=== PATIENT | female | born 1955 | race Caucasian/White ===

== ENCOUNTER 2024-05-10 06:45 | Day surgery (SDC) | payer OTHER ==
[~2024-05-10] VITALS: Ht 157.5 cm; Wt 93.4 kg
[2024-05-10] MEDS ORDERED: ALBU2.5V5 (07:09)
[2024-05-10] MEDS ORDERED: ASPI81CH (07:09)
[2024-05-10] MEDS ORDERED: CLON.5 (07:10)
[2024-05-10] MEDS ORDERED: CETI5 (07:10)
[2024-05-10] MEDS ORDERED: Bentyl10 MG (07:10)
[2024-05-10] MEDS ORDERED: Cyclobenzaprine5 MG (07:10)
[2024-05-10] MEDS ORDERED: UBID10 (07:10)
[2024-05-10] MEDS ORDERED: LOSA25 (07:11)
[2024-05-10] MEDS ORDERED: HYDSUL200 (07:11)
[2024-05-10] MEDS ORDERED: HYDROCHLOROTHIA25 MG (07:11)
[2024-05-10] MEDS ORDERED: MIRALAX1714 (07:12)
[2024-05-10] MEDS ORDERED: OCUFLOX511 (07:12)
[2024-05-10] MEDS ORDERED: METO100ER (07:12)
[2024-05-10] MEDS ORDERED: MONT10T (07:12)
[2024-05-10] MEDS ORDERED: PROBIOTIC1 EA14 (07:13)
[2024-05-10] MEDS ORDERED: POTA10T (07:13)
[2024-05-10] MEDS ORDERED: OMEP20ER (07:13)
[2024-05-10] MEDS ORDERED: Simvastatin10 MG (07:13)
[2024-05-10] MEDS ORDERED: Vitamin C100 M1 (07:14)
[2024-05-10] MEDS ORDERED: Lactated Ringer's 1,000 ML IV ONE ×2 (07:27→07:52)
[2024-05-10] MEDS ORDERED: propofoL 50 ML IV ONE ×2 (08:02→08:23)
[2024-05-10 09:00] VITALS: BP 111/67
== END 2024-05-10 09:00 | disposition home or self-care (01) ==
LOC: ORSCSDS 06:45
PROVIDERS: Internal Medicine Gastroenterology
PROC: 0DJD8ZZ Inspection of Lower Intestinal Tract, Via Natural or Artificial Opening Endoscopic (ICD-10-PCS; principal; 2024-05-10 08:00)
DX: Z12.11 Encounter for screening for malignant neoplasm of colon (principal); K57.30 Diverticulosis of large intestine without perforation or abscess without bleeding; Z86.010 Personal history of colon polyps; G47.33 Obstructive sleep apnea (adult) (pediatric); I10 Essential (primary) hypertension; K21.9 Gastro-esophageal reflux disease without esophagitis; Z68.37 Body mass index [BMI] 37.0-37.9, adult; Z79.899 Other long term (current) drug therapy
CPT/HCPCS: J2704; J7120

== ENCOUNTER 2024-11-22 12:49 | Observation (INO) | payer OTHER ==
[~2024-11-22] VITALS: Ht 157.5 cm; Wt 97.9 kg
[~2024-11-22 12:49] MED LIST: ALBU2.5V5 INH; ASPI81CH PO; Bentyl10 MG; CETI5 PO; CLON.5 PO; Cyclobenzaprine5 MG; HYDROCHLOROTHIA25 MG PO; HYDSUL200 PO; LOSA25 PO; METO100ER; MIRALAX1714 PO; MONT10T PO; OCUFLOX511; OMEP20ER; POTA10T PO; PROBIOTIC1 EA14; Simvastatin10 MG; UBID10 PO; Vitamin C100 M1
[2024-11-22 13:27] LABS: BASOPHILS ABSOLUTE AUTO 0.18 K/mm3 (0.00-0.23); BASOPHILS PERCENT AUTO 2 % (0-2); EOSINOPHILS ABSOLUTE AUTO 0.22 K/mm3 (0.00-0.68); EOSINOPHILS PERCENT AUTO 3 % (0-6); Hematocrit 45.6 % (33.0-51.0); Hemoglobin 15.6 g/dL (11.5-16.0); IMMATURE GRAN ABSOLUTE AUTO 0.04 K/mm3 (0.00-0.10); IMMATURE GRAN PERCENT AUTO 1 % (0-1); LYMPHOCYTES ABSOLUTE AUTO 2.22 K/mm3 (0.84-5.20); LYMPHOCYTES PERCENT AUTO 27 % (21-46); MONOCYTES ABSOLUTE AUTO 0.45 K/mm3 (0.16-1.47); MONOCYTES PERCENT AUTO 5 % (4-13); Mean Corpuscular HGB 32.2 pg (26.0-34.0); Mean Corpuscular HGB Conc 34.2 g/dL (31.5-36.5); Mean Corpuscular Volume 94 fL (80-100); NEUTROPHILS ABSOLUTE AUTO 5.18 K/mm3 (1.96-9.15); NEUTROPHILS PERCENT AUTO 62 % (41-73); Platelet Count 222 K/mm3 (150-400); RDW Coefficient Variation 12.7 % (11.7-14.2); RDW Standard Deviation 43.6 fL (35.1-46.3); Red Blood Cell Count 4.85 M/mm3 (3.80-5.20); White Blood Cell Count 8.29 K/mm3 (4.00-11.30)
[2024-11-22 13:56] LABS: Albumin, Blood 4.3 g/dL (3.4-5.0); Albumin/Globulin Ratio 1.1 (0.8-1.8); Bilirubin, Total 0.6 mg/dL (0.1-1.0); Bun/Creatinine Ratio 23.6 (12.0-20.0); Calcium, Blood 9.1 mg/dL (8.5-10.1); Creatinine, Blood 0.93 mg/dL (0.40-1.00); Globulin, Blood 3.8 g/dL (2.2-4.0); Potassium, Blood 4.6 mmol/L (3.5-5.5); Total Protein, Blood 8.1 g/dL (6.4-8.2)
[2024-11-22] MEDS ORDERED: Aspirin 325 MG Tab PO ONE (17:50)
[2024-11-22] MEDS ORDERED: Labetalol HCL 5 MG/ML 4ML Injection (Single Dose) IV PRN (18:55)
[2024-11-22] MEDS ORDERED: Ondansetron HCl 2 MG / ML 2ML Vial IV PRN (18:55)
[2024-11-22] MEDS ORDERED: Albuterol 2.5 MG/3 ML VIAL INH PRN (19:00)
[2024-11-22] MEDS ORDERED: Nitroglycerin 1 INCH/GM PKT TOP ONE (19:00)
[2024-11-22 19:58] LABS: Anti-Xa UFH, PHA Monitoring <0.10 IU/mL; International Normalized Ratio 1.02; Prothrombin Time Results 10.9 Sec (9.7-11.5)
[2024-11-22] MEDS ORDERED: NS 1,000 ML IV SCH ×2 (20:10→20:15)
[2024-11-22] MEDS ORDERED: Heparin Sodium 5000 Units/ML 1ML MDV IV ONE (20:55)
[2024-11-22] MEDS ORDERED: Heparin Sodium,Porcine/0.5 NS 500 ML IV SCH (20:55)
[2024-11-22] MEDS ORDERED: ClonazePAM 0.5 MG Tab PO SCH (21:00)
[2024-11-22] MEDS ORDERED: Losartan Potassium 25 MG Tab PO SCH (21:00)
[2024-11-22 21:27] VITALS: BP 137/85
[2024-11-23] VITALS (11 sets, daily range): BP systolic 98–144; BP diastolic 61–89
--- NOTE | 2024-11-23 03:56 | NUR ---
ADMIT NOTE FOR 11/22 2106/SHIFT SUMMARY REPORT WAS RECEIVED FROM THE ER. PT WAS BROUGHT DOWN ON A GURNEY AND STOOL UP AND AMBULATED TO THE BED. SHE WAS ORIENTED TO THE ROOM AND STAFF. SHES ALERT ORIENTED X 4 ABLE TO VERBALIZE NEEDS AMBULATES AD JAVON IN THE ROOM OR TO THE BATHROOM. SHE WAS STARTED ON HEPARIN AT 15U/KG/HR OR 21ML/HR. NO C/O CHEST PAIN OR PRESSURE SINCE ADMIT. SHES NPO SINCE MIDNIGHT FOR A POSSIBLE PROCEDURE TODAY. CONTINUES ON NS AT 125. REMAINS ON TELEMETRY AT NSR AT A RATE OF 68. SHE DID C/O A HEADACHE THATS POSSIBLY FROM THE NITRO PATCH THAT SHES WEARING. SHE HAS A ORDER FOR A CARDIOLOGY CONSULT TODAY. I CALLED LAST NIGHT AND LEFT A NOTE FOR THE BAR FINISH OPERATOR SCALER CONCHA. VSS SINCE ADMIT. NO INCREASE IN BP. SHE WAS 137/85 AND 103/73. SHES RESTING IN BED AT THIS TIME WITH CALL LIGHT IN REACH
[2024-11-23 04:31] LABS: Hematocrit 39.6 % (33.0-51.0); Hemoglobin 13.5 g/dL (11.5-16.0); Mean Corpuscular HGB 32.3 pg (26.0-34.0); Mean Corpuscular HGB Conc 34.1 g/dL (31.5-36.5); Mean Corpuscular Volume 95 fL (80-100); Mean Platelet Volume 10.9 fL (9.1-12.4); Platelet Count 189 K/mm3 (150-400); RDW Standard Deviation 44.9 fL (35.1-46.3); Red Blood Cell Count 4.18 M/mm3 (3.80-5.20); White Blood Cell Count 8.89 K/mm3 (4.00-11.30)
[2024-11-23 04:49] LABS: Bun/Creatinine Ratio 23.2 (12.0-20.0); Calcium, Blood 8.7 mg/dL (8.5-10.1); Creatinine, Blood 0.73 mg/dL (0.40-1.00); Potassium, Blood 3.8 mmol/L (3.5-5.5)
[2024-11-23] MEDS ORDERED: Clarify Drug Order XX ONE (05:05)
[2024-11-23] MEDS ORDERED: Omeprazole 20 MG CapCR PO SCH (06:00)
[2024-11-23] MEDS ORDERED: Midazolam HCl 1MG / ML 2ML Vial ONE (08:21)
[2024-11-23] MEDS ORDERED: FentaNYL Citrate 50 MCG/ML 2 ML Injection ONE (08:21)
[2024-11-23] MEDS ORDERED: NS 1,000 ML IV ONE ×2 (08:22→09:49)
--- NOTE | 2024-11-23 08:23 | NUR ---
PT GOING TO LABOR RELATIONS OFFICER- CARDIOLOGY CAME TO SEE THE PT, SHE WILL BE THE FIRST PATIENT TO GO TO THE LABOR RELATIONS OFFICER THIS AM. PT CALLED HER TO HAVE HIM COME IN. SHE IS A LITTLE NERVOUS. LABOR RELATIONS OFFICER RN JUST CALLED THEY ARE COMING TO GET HER NOW, HAS NOT YET ARRIVED. PT DENIES ANY CP OR SOB AT THIS TIME SHE STATES SHE HAS A 3-4/10 HEADACHE, LIKELY R/T THE NITRO PASTE ON HER RIGHT CHEST. TELE IN PLACE SHOWING SIN AT 84 cBBB AND FIRST DEGREE HB. PT HAS BEEN NPO SINCE ADMISSION. HEPARIN DRIP INFUSING AT THIS TIME. WILL BE SL ONCE SHE LEAVES FOR THE LABOR RELATIONS OFFICER. PT TO GO TO PCU POST CATH ROOM NOT YET ASSIGNED.
--- NOTE | 2024-11-23 08:46 | NUR ---
Per report the pt just went to the medical lab scientist for coronary angiogram. Telephone report received from ADDIS Coronado. Pt to transfer to PCU 9 afterwards.
[2024-11-23] MEDS ORDERED: Metoprolol Succinate 25 MG TABCR PO SCH (09:00)
[2024-11-23] MEDS ORDERED: Aspirin 81 MG Chew PO SCH (09:00)
[2024-11-23] MEDS ORDERED: Tirofiban HCL Monohydrate 3.75 MG/15 ML Vial ONE (09:03)
--- NOTE | 2024-11-23 09:46 | NUR ---
Belongings brought to room PCU 9; purse, bag of clothing
[2024-11-23] MEDS ORDERED: Verapamil HCL 2.5 MG/ML 2ML Injection ONE (09:48)
[2024-11-23] MEDS ORDERED: Heparin Sodium 1000 Units/ML 10ML MDV ONE (09:49)
[2024-11-23] MEDS ORDERED: NS 250 ML IV ONE (09:49)
[2024-11-23] MEDS ORDERED: Rosuvastatin Calcium 10 MG Tab PO SCH (10:00)
--- NOTE | 2024-11-23 10:18 | NUR ---
PT arrived from the heart center; Alert, oriented and states she is having spasm in her back and some pain in the left shoulder. Dr. Steven is at the bedside. Pt will be starting on the [facility] today. TR band in place inflated over the right wrist, ulnar access site. NO bleeding, no bruising, no hematoma. Pt denies any discomfort in the right hand/arm. SPo2 on the index finger of right arm is reading 92%. Vital signs are stable. Heparin gtt was stopped before the angiogram and has since been dc'd.
[2024-11-23] MEDS ORDERED: AmLODIPine Besylate 5 MG Tab PO SCH (10:20)
--- NOTE | 2024-11-23 10:30 | NUR ---
1 CC AIR REMOVED FROM THE TR BAND PT WAS C/O ACHING IN HER ARM. OTHERWISE THE RIGHT ARM REMAINS THE SAME FROM PRIOR ASSESSMENT.
[2024-11-23] MEDS ORDERED: METO25ER PO (11:52)
[2024-11-23] MEDS ORDERED: AMLO5 PO (11:54)
[2024-11-23] MEDS ORDERED: Crestor40 MG PO (11:54)
[2024-11-23] MEDS ORDERED: Acetaminophen 325 MG TABLET PO PRN (12:05)
--- NOTE | 2024-11-23 13:36 | NUR ---
TR BAND was removed; the site is WNL. NO bleeding, no hematoma, no bruising. Site cleansed and tegederm dressing appolied to that area. Discharge instructions were reviewed with the pt and her spouse at this time. IV removed.
[2024-11-24] MEDS ORDERED: AmLODIPine Besylate 5 MG Tab PO SCH ×2 (09:00)
== END 2024-11-23 14:20 | disposition home or self-care (01) ==
LOC: ER 12:49 → ERHOLD 12:50 → MEDS 12:50 → PCU 11-23 09:49
PROVIDERS: Nurse Practitioner Acute Care; Physician Assistant; ADMIT Internal Medicine
DX: I24.89 Other forms of acute ischemic heart disease (principal); I10 Essential (primary) hypertension; E78.5 Hyperlipidemia, unspecified; K21.9 Gastro-esophageal reflux disease without esophagitis; M06.9 Rheumatoid arthritis, unspecified; K58.9 Irritable bowel syndrome, unspecified; E66.01 Morbid (severe) obesity due to excess calories; I16.0 Hypertensive urgency; J45.909 Unspecified asthma, uncomplicated; I25.110 Atherosclerotic heart disease of native coronary artery with unstable angina pectoris; Z68.39 Body mass index [BMI] 39.0-39.9, adult; Z88.2 Allergy status to sulfonamides; Z88.5 Allergy status to narcotic agent; Z88.8 Allergy status to other drugs, medicaments and biological substances; Z88.6 Allergy status to analgesic agent; Z79.899 Other long term (current) drug therapy; Z79.82 Long term (current) use of aspirin; Z95.5 Presence of coronary angioplasty implant and graft
CPT/HCPCS: 36415; 71046; 71275; 74175; 76937; 80048; 80053; 83690; 84484; 85025; 85027; 85347; 85520; 85610; 85730; 93005; 93010; 93458; 93571; 96374; 99152; 99153; 99285-25; A9270; C1769; C1887; C1894; G0378; J1644; J2250; J3010; J3246; J7030; J7050; Q9967

== ENCOUNTER 2024-11-24 20:09 | Inpatient (IN) | payer OTHER ==
[~2024-11-24] VITALS: Ht 157.5 cm; Wt 98.4 kg
[~2024-11-24 20:09] MED LIST changes: +AMLO5 PO; +Crestor40 MG PO; +METO25ER PO
[2024-11-24 20:21] LABS: BASOPHILS ABSOLUTE AUTO 0.12 K/mm3 (0.00-0.23); BASOPHILS PERCENT AUTO 1 % (0-2); EOSINOPHILS ABSOLUTE AUTO 0.39 K/mm3 (0.00-0.68); EOSINOPHILS PERCENT AUTO 5 % (0-6); Hematocrit 44.5 % (33.0-51.0); Hemoglobin 15.1 g/dL (11.5-16.0); IMMATURE GRAN ABSOLUTE AUTO 0.02 K/mm3 (0.00-0.10); IMMATURE GRAN PERCENT AUTO 0 % (0-1); LYMPHOCYTES ABSOLUTE AUTO 3.58 K/mm3 (0.84-5.20); LYMPHOCYTES PERCENT AUTO 42 % (21-46); MONOCYTES ABSOLUTE AUTO 0.55 K/mm3 (0.16-1.47); MONOCYTES PERCENT AUTO 6 % (4-13); Mean Corpuscular HGB 31.6 pg (26.0-34.0); Mean Corpuscular HGB Conc 33.9 g/dL (31.5-36.5); Mean Corpuscular Volume 93 fL (80-100); NEUTROPHILS ABSOLUTE AUTO 3.87 K/mm3 (1.96-9.15); NEUTROPHILS PERCENT AUTO 45 % (41-73); Platelet Count 199 K/mm3 (150-400); RDW Coefficient Variation 12.8 % (11.7-14.2); Red Blood Cell Count 4.78 M/mm3 (3.80-5.20); White Blood Cell Count 8.53 K/mm3 (4.00-11.30)
[2024-11-24] MEDS ORDERED: Morphine Sulfate 4 MG/1 ML Injection IV ONE ×2 (20:25→21:20)
[2024-11-24 20:43] LABS: Albumin, Blood 3.9 g/dL (3.4-5.0); Bilirubin, Total 0.5 mg/dL (0.1-1.0); Bun/Creatinine Ratio 13.6 (12.0-20.0); Creatinine, Blood 0.81 mg/dL (0.40-1.00); Globulin, Blood 3.8 g/dL (2.2-4.0); Potassium, Blood 3.6 mmol/L (3.5-5.5); Total Protein, Blood 7.7 g/dL (6.4-8.2)
[2024-11-24 23:34] LABS: International Normalized Ratio 0.97; Prothrombin Time Results 10.4 Sec (9.7-11.5)
[2024-11-24 23:43] LABS: Anti-Xa UFH, PHA Monitoring <0.10 IU/mL
[2024-11-24] MEDS ORDERED: Heparin Sodium,Porcine/0.5 NS 500 ML IV SCH (23:45)
[2024-11-25] VITALS (17 sets, daily range): BP systolic 119–173; BP diastolic 76–114
[2024-11-25] MEDS ORDERED: Nitroglycerin 1 INCH/GM PKT TOP ONE (00:25)
[2024-11-25] MEDS ORDERED: Acetaminophen 500 MG Tab PO ONE (00:25)
[2024-11-25] MEDS ORDERED: FLU VACC TS2024-25(6MOS UP)/PF 45 MCG/0.5 ML SYRINGE IM ONE (00:40)
[2024-11-25] MEDS ORDERED: Ondansetron 4 MG TAB PO PRN (00:40)
[2024-11-25] MEDS ORDERED: Nitroglycerin 0.4 MG SUBL SL SCH (00:45)
[2024-11-25] MEDS ORDERED: Albuterol 2.5 MG/3 ML VIAL INH PRN (00:50)
[2024-11-25] MEDS ORDERED: NS 1,000 ML IV SCH (01:00)
[2024-11-25] MEDS ORDERED: Morphine Sulfate 4 MG/1 ML Injection IV PRN (01:40)
[2024-11-25] MEDS ORDERED: ClonazePAM 0.5 MG Tab PO PRN (02:10)
[2024-11-25 04:21] LABS: BASOPHILS ABSOLUTE AUTO 0.12 K/mm3 (0.00-0.23); BASOPHILS PERCENT AUTO 1 % (0-2); EOSINOPHILS ABSOLUTE AUTO 0.32 K/mm3 (0.00-0.68); EOSINOPHILS PERCENT AUTO 4 % (0-6); Hematocrit 41.4 % (33.0-51.0); Hemoglobin 14.1 g/dL (11.5-16.0); IMMATURE GRAN ABSOLUTE AUTO 0.02 K/mm3 (0.00-0.10); IMMATURE GRAN PERCENT AUTO 0 % (0-1); LYMPHOCYTES ABSOLUTE AUTO 3.56 K/mm3 (0.84-5.20); LYMPHOCYTES PERCENT AUTO 40 % (21-46); MONOCYTES ABSOLUTE AUTO 0.61 K/mm3 (0.16-1.47); MONOCYTES PERCENT AUTO 7 % (4-13); Mean Corpuscular HGB 31.7 pg (26.0-34.0); Mean Corpuscular HGB Conc 34.1 g/dL (31.5-36.5); Mean Corpuscular Volume 93 fL (80-100); Mean Platelet Volume 10.9 fL (9.1-12.4); NEUTROPHILS ABSOLUTE AUTO 4.37 K/mm3 (1.96-9.15); NEUTROPHILS PERCENT AUTO 49 % (41-73); Platelet Count 182 K/mm3 (150-400); RDW Coefficient Variation 12.9 % (11.7-14.2); Red Blood Cell Count 4.45 M/mm3 (3.80-5.20)
[2024-11-25 04:47] LABS: Albumin, Blood 3.6 g/dL (3.4-5.0); Albumin/Globulin Ratio 1.1 (0.8-1.8); Bilirubin, Total 0.6 mg/dL (0.1-1.0); Bun/Creatinine Ratio 16.7 (12.0-20.0); Creatinine, Blood 0.72 mg/dL (0.40-1.00); Globulin, Blood 3.4 g/dL (2.2-4.0); Potassium, Blood 3.8 mmol/L (3.5-5.5)
[2024-11-25] MEDS ORDERED: Acetaminophen 325 MG TABLET PO PRN (05:20)
--- NOTE | 2024-11-25 05:59 | NUR ---
ADMISSION TO UNIT/SHIFT SUMMARY PT ARRIVED TO UNIT AT 0250 VIA BED FROM ED ([facility]), ALERT AND ORIENTED, NO CHEST PAIN/PRESSURE, SOB, AB PAIN. PT DID C/O MCCALLUM AND SOME LEFT NECK PAIN THAT WAS ADDRESSED WITH 2MG MORPHINE. SINUS TACHY AT FIRST AND SINUS 80'S AT END OF SHIFT. BP'S EXCELLENT THROUGHOUT SHIFT (SBP 110-145). TROPONIN TREND WAS 86, 500, [address] Marsh WAS CONSULTED AND HE ORDERED TROP TREND TO BE CANCELLED. HEPARIN INFUSING AT 12 UNITS/KG/HR BASED ON ADJUSTED WEIGHT OF 70KG. PT SATURATIONS WERE HIGH 90'S ON RA UPON ARRIVAL BUT DURING ASSESSMENT, PT DESAT TO 87 AT TIMES SO 2L NC WAS STARTED. NO N/V. PT INDEPENDENT BUT TOLD TO USE CALL LIGHT. NS STARTED AT 100ML/HR. REPORT GIVEN TO ONCOMING NURSE AND PT LEFT WITH CALL LIGHT HANDY.
[2024-11-25] MEDS ORDERED: Omeprazole 20 MG CapCR PO SCH (06:00)
[2024-11-25 08:07] LABS: Anti-Xa UFH, PHA Monitoring 0.27 IU/mL; International Normalized Ratio 1.01; Prothrombin Time Results 10.8 Sec (9.7-11.5)
[2024-11-25] MEDS ORDERED: Dose Adjust by Pharmacy XX STA ×3 (08:24→23:34)
[2024-11-25] MEDS ORDERED: Losartan Potassium 25 MG Tab PO SCH (09:00)
[2024-11-25] MEDS ORDERED: Rosuvastatin Calcium 10 MG Tab PO SCH (09:00)
[2024-11-25] MEDS ORDERED: Montelukast Sodium 10 MG Tab PO SCH (09:00)
[2024-11-25] MEDS ORDERED: Polyethylene Glycol 3350 17 gm PO SCH (09:00)
[2024-11-25] MEDS ORDERED: Aspirin 81 MG Chew PO SCH (09:00)
[2024-11-25] MEDS ORDERED: Hydroxychloroquine Sulfate 200 MG Tab PO SCH (09:00)
[2024-11-25] MEDS ORDERED: dilTIAZem HCL 60 MG CAP.SR PO SCH (09:00)
[2024-11-25] MEDS ORDERED: Loratadine 10 MG Tab PO SCH (09:00)
[2024-11-25] MEDS ORDERED: Metoprolol Succinate 25 MG TABCR PO SCH (09:00)
[2024-11-25] MEDS ORDERED: Metoprolol Succinate 25 MG TABCR PO ONE (12:45)
[2024-11-25] MEDS ORDERED: Metoprolol Succinate 50 MG TABCR PO ONE (13:15)
--- NOTE | 2024-11-25 17:41 | NUR ---
SHIFT SUMMARY PT A&OX4, PLEASANT. SP02>90% ON 2L, ATTEMPTED TO TITRATE TO RA BUT DESATS TO LOW 80'S WHEN SLEEPING. TELEMETRY SHOWS NSR HR MOSTLY 90'S. PT C/O OF CHEST PRESSURE THIS AFTERNOON, PT STATES A LESSER VERSION OF THE KIND OF CP THAT SHE CALLED EMS FOR TO BRING IN TO HOSPITAL. EKG IN CHART. CK IN ROOM TO ASSESS, INCREASED METOPROLOL, SEE EMAR. NITRO PASTE ON CHEST PER EMAR. HEP GTT AND FLUIDS INFUSING PER EMAR. AND NIECE IN ROOM THIS SHIFT. PT ABLE TO AMBULATED SBA TO BATHROOM TO VOID. TYLENOL GIVEN THIS AM FOR HEADACHE. CALL LIGHT IN REACH.
[2024-11-25] MEDS ORDERED: Clopidogrel Bisulfate 300 MG Cap PO ONE (17:45)
--- NOTE | 2024-11-25 22:28 | NUR ---
SHIFT SUMMARY PT HAS TR BAND IN PLACE FROM ANGIOGRAM THIS AFTERNOON. AT START OF SHIFT (1829), BAND HAD 10ML. 1929, REMOVED 2ML. 1999 REMOVED 2ML. 2029 SUPERSONIC ENGINEER REMOVED 2ML. 2099, THIS RN REMOVED 2ML, BUT SITE IMMEDIATELY BEGAN TO OOZE. REPLACED 2ML. 2139, REMOVED 2ML. 2141 UP TO BATHROOM-425ML. 2211 LAST 2ML REMOVED.
--- NOTE | 2024-11-25 22:30 | NUR ---
SHIFT SUMMARY PT SEEMS IN HIGH SPIRITS. HER IS AT BEDSIDE. NPO AT MIDNIGHT D/T STRESS TEST IN AM. PT HAS SOME TRACE EDEMA IN BLE, WORSE ON RIGHT. THIS IS HER BASELINE PER PT. PT IS RESTING PEACEFULLY AT THIS TIME. 2153, PT UP TO BATHROOM.-350
--- NOTE | 2024-11-25 23:59 | NUR ---
ASSUMPTION OF CARE NOTE. THIS RN TOOK OVER CARE FROM PREVIOUS RN @ APPROXIMATELY 2245. PT RESTING COMFORTABLY AT TIME OF ASSESSMENT. AOX4, PLEASANT, COOPERATIVE, ABLE TO MAKE NEEDS KNOWN. NPO @ 0000, PT REEDUCATED ON INDICATION. DENIES PAIN OR NEEDS OF ANY KIND. VERIFIED HEPARIN RATE. ENCOURAGED TO CALL WITH ANY QUESTIONS/CONCERNS/NEEDS. CONTINUING TO MONITOR.
[2024-11-26] VITALS (8 sets, daily range): BP systolic 115–207; BP diastolic 59–106
--- NOTE | 2024-11-26 03:09 | NUR ---
TRANSFERRING CARE TO BIOENGINEER. SHIFT WITH THIS RN HAS BEEN UNREMARKABLE. PT HAS BEEN ABLE TO REST COMFORTABLY THROUGHOUT. ANGIO SITES C/D/I. CONTINUES TO RUN SINUS ON TELE, RATE PRIMARILY SETTLING IN THE 70s. WHEN INQUIRED ABOUT PAIN PT DENIED AND REPORTED BEING COMFORTABLY. DENIED ACUTE NEEDS. BED LOCKED IN LOWEST POSITION. CALLLIGHT LEFT WITHIN REACH. CONTINUING TO MONITOR.
[2024-11-26] MEDS ORDERED: Dose Adjust by Pharmacy XX STA (05:41)
[2024-11-26] MEDS ORDERED: Pantoprazole Sodium 20 MG Tab PO SCH (06:00)
[2024-11-26] MEDS ORDERED: Metoprolol Succinate 50 MG TABCR PO SCH ×2 (07:00→09:00)
[2024-11-26] MEDS ORDERED: AmLODIPine Besylate 5 MG Tab PO SCH (09:00)
[2024-11-26] MEDS ORDERED: Clopidogrel Bisulfate 75 MG Tab PO SCH (09:00)
[2024-11-26] MEDS ORDERED: AmLODIPine Besylate 5 MG Tab PO STA (10:43)
--- NOTE | 2024-11-26 10:56 | NUR ---
THIS RN COVERING FOR PRIMARY NURSE FOR BREAK. [facility] CONTACTED THIS RN TO ASK ABOUT NITRO PASTE OR CAFFEINE INTAKE. THIS RN ASSESSED PT FOR NITRO PASTED AND NOTED THAT PASTE WAS PRESENT. NITRO PASTE REMOVED AT 1040 AND [facility] NOTIFIED. [facility] NOTIFIED THIS RN THAT PT WILL HAVE TO DO STRESS PORTION OF STRESS TEST TOMORROW. THIS RN NOTIFIED PRIMARY RN.
[2024-11-26] MEDS ORDERED: Carvedilol 25 MG Tab PO SCH (17:00)
--- NOTE | 2024-11-26 18:37 | NUR ---
SHIFT SUMMARY NO ACUTE CHANGES THIS SHIFT. VSS. HTN NOTED THIS AM. DENIES PAIN. FIRST PORTION OF STRESS TEST DONE TODAY. ECHO DONE THIS SHIFT. FLUIDS DC'D THIS SHIFT. UP TO BATHROOM INDEPENDENTLY. FAMILY IN ROOM MOST OF DAY. NPO AT MIDNIGHT, NO CAFFIENE AFTER 1900 FOR 2ND PORTION OF STRESS TEST IN AM. CALL LIGHT IN REACH.
[2024-11-27] VITALS (7 sets, daily range): BP systolic 110–172; BP diastolic 60–99
--- NOTE | 2024-11-27 05:32 | NUR ---
SHIFT SUMMARY PT A&O X4, CALM, COOPERATIVE TO CARE. HR IN THE 70'S, SR, DENIES CP/PRESSURE, NUMB/TINGLING, SBP STABLE. O2 >92%, PT ON RA T/O SHIFT, DENIES SOB. PT TO COMPLETE SECOND PORTION OF STRESS TEST 11/27, PT NPO SINCE MIDNIGHT FOR TEST. NO ACUTE CHANGES T/O SHIFT. PT RESTING IN BED AT THIS TIME. SHE DENIES QUESTIONS OR CONCERNS AT THIS TIME. WILL MONITOR PT AND REPORT TO ONCOMING RN.
[2024-11-27] MEDS ORDERED: AmLODIPine Besylate 5 MG Tab PO SCH (07:00)
[2024-11-27 09:06] LABS: BASOPHILS PERCENT AUTO 1 % (0-2); EOSINOPHILS ABSOLUTE AUTO 0.53 K/mm3 (0.00-0.68); EOSINOPHILS PERCENT AUTO 6 % (0-6); Hematocrit 44.7 % (33.0-51.0); Hemoglobin 15.2 g/dL (11.5-16.0); IMMATURE GRAN ABSOLUTE AUTO 0.02 K/mm3 (0.00-0.10); IMMATURE GRAN PERCENT AUTO 0 % (0-1); LYMPHOCYTES ABSOLUTE AUTO 2.79 K/mm3 (0.84-5.20); LYMPHOCYTES PERCENT AUTO 33 % (21-46); MONOCYTES ABSOLUTE AUTO 0.53 K/mm3 (0.16-1.47); MONOCYTES PERCENT AUTO 6 % (4-13); Mean Corpuscular HGB 32.1 pg (26.0-34.0); Mean Corpuscular Volume 94 fL (80-100); Mean Platelet Volume 10.7 fL (9.1-12.4); NEUTROPHILS ABSOLUTE AUTO 4.43 K/mm3 (1.96-9.15); NEUTROPHILS PERCENT AUTO 53 % (41-73); Platelet Count 201 K/mm3 (150-400); RDW Coefficient Variation 12.9 % (11.7-14.2); RDW Standard Deviation 44.3 fL (35.1-46.3); Red Blood Cell Count 4.74 M/mm3 (3.80-5.20)
[2024-11-27 09:15] LABS: Bun/Creatinine Ratio 16.5 (12.0-20.0); Calcium, Blood 9.5 mg/dL (8.5-10.1); Creatinine, Blood 0.73 mg/dL (0.40-1.00); Potassium, Blood 4.2 mmol/L (3.5-5.5)
[2024-11-27] MEDS ORDERED: Aminophylline 250MG / 10ML 10 ML Vial ONE (09:48)
[2024-11-27] MEDS ORDERED: Regadenoson 0.4 MG/5 ML SYRINGE ONE (09:49)
--- NOTE | 2024-11-27 17:37 | NUR ---
shift summary no acute changes this shift. Pt aox4, able to make needs known, independent in room. Sp02>90% on ra. Telemetry shows nsr, hr 70's, see vitals. Second portion of stress test done this shift. Denies pain. Up to bathroom independently. C/o of anxiety, medicated per emar x1. Family in room most of shift. Resting in bed waiting for dinner, call light in reach.
--- NOTE | 2024-11-27 22:12 | NUR ---
ASSUMPTION OF CARE PT A&O X4, CALM, COOPERATIVE TO CARE. HR IN THE 80'S, SHE DENIES ANY CP/PRESSURE, NUMB/TINGLING, SBP STABLE. SHE REPORTS AN EPISODE OF "FLUTTERING" TODAY BUT IT RESOLVED AFTER RECEIVING ANTI-ANXIETY MEDICATIONS AND DENIES ANY MORE EPISODES TODAY. O2 >92% ON RA, DENIES ANY SOB. PT AMBULATORY TO BATHROOM INDEPENDENTLY. PT RESTING IN BED AT THIS TIME. CALL LIGHT IN REACH.
[2024-11-28 04:16] VITALS: BP 129/70
[2024-11-28 04:29] LABS: Bun/Creatinine Ratio 23.1 (12.0-20.0); Calcium, Blood 9.1 mg/dL (8.5-10.1); Creatinine, Blood 0.86 mg/dL (0.40-1.00); Potassium, Blood 3.8 mmol/L (3.5-5.5)
--- NOTE | 2024-11-28 05:17 | NUR ---
SHIFT SUMMARY PT A&O X4, CALM, COOPERATIVE TO CARE. HR IN THE 80'S, SINUS RHYTHM. SHE DENIES ANY CP/PRESSURE, NUMB/TINGLING. SBP STABLE. O2 >92% ON RA, DENIES ANY SOB. PT INDEPENDET IN ROOM. S/P ANGIO 11/22, TEGADERM STILL IN PLACE OVER RIGHT RADIAL AND RIGHT ULNAR SITES. NO OOZING PRESENT. PT AWAITING RESULTS FROM STRESS TEST. PTS SPOUSE AT BEDSIDE. PT RESTING IN BED AT THIS TIME. HE DENIES ANY QUESTIONS OR CONCERNS AT THIS TIME. WILL MONITOR PT AND REPORT TO ONCOMING RN.
[2024-11-28 08:06] VITALS: BP 121/78
[2024-11-28] MEDS ORDERED: Enoxaparin 40 MG/0.4 ML SYR SC SCH (09:00)
[2024-11-28] MEDS ORDERED: CLOP75 PO (11:39)
[2024-11-28] MEDS ORDERED: CARV25 PO (11:39)
[2024-11-28] MEDS ORDERED: PANT20 PO (11:39)
[2024-11-28] MEDS ORDERED: NITR.4SL SL (11:40)
[2024-11-28 11:54] VITALS: BP 101/73
[2024-11-28] MEDS ORDERED: Isosorbide Mono30 MG PO (12:00)
[2024-11-28] MEDS ORDERED: TELM40 PO (12:00)
--- NOTE | 2024-11-28 14:01 | NUR ---
PT DISCHARGE TO HOME WITH DISCHARGE ORDERS. ALL NEW MEDICATIONS AND DISCHARGE INSTRUCTIONS DISCLOSED WITH THE PT, VERBALIZED UNDERSTANDING. PRESCRIPTION SENT TO [facility]. NO ACTIVE CHEST PAINS REPORTED FOR THE SHIFT, VITALS HAS BEEN STABLE. DR NOGUEIRA CAME BY THIS MORNING ABLE TO DISCUSS PLAN WITH THE PT AND CLEAR PT FOR DISCHARGE. CAME BY TO SURFACE MOUNT TECHNOLOGY OPERATOR PT, ALL BELONGINGS SENT, ACCOMPANIED VIA WHEELCHAIR FOR TRANSPORT
== END 2024-11-28 13:44 | disposition home or self-care (01) | DRG 281 ==
LOC: ER 20:09 → ERHOLD 11-25 00:37 → PCU 11-25 00:37
PROVIDERS: Emergency Medicine; Internal Medicine; Student in an Organized Health Care Education/Training Program; ADMIT Student in an Organized Health Care Education/Training Program
DX: I24.9 Acute ischemic heart disease, unspecified (principal); I50.32 Chronic diastolic (congestive) heart failure; I21.4 Non-ST elevation (NSTEMI) myocardial infarction; Z68.41 Body mass index [BMI] 40.0-44.9, adult; I25.10 Atherosclerotic heart disease of native coronary artery without angina pectoris; E78.5 Hyperlipidemia, unspecified; K21.9 Gastro-esophageal reflux disease without esophagitis; M06.9 Rheumatoid arthritis, unspecified; K58.9 Irritable bowel syndrome, unspecified; I45.10 Unspecified right bundle-branch block; E66.9 Obesity, unspecified; F41.9 Anxiety disorder, unspecified; I11.0 Hypertensive heart disease with heart failure; Z90.710 Acquired absence of both cervix and uterus; Z98.890 Other specified postprocedural states; Z90.49 Acquired absence of other specified parts of digestive tract; Z88.2 Allergy status to sulfonamides; Z95.5 Presence of coronary angioplasty implant and graft; Z91.040 Latex allergy status; Z88.5 Allergy status to narcotic agent; Z88.8 Allergy status to other drugs, medicaments and biological substances; Z79.82 Long term (current) use of aspirin; Z79.899 Other long term (current) drug therapy
CPT/HCPCS: 36415; 71045; 71275; 74175; 78452; 80048; 80053; 83605; 83690; 84484; 85025; 85520; 85610; 85730; 93005; 93010; 93017; 93306; 94760; 94762; 96374; 99285-25; A9270; A9500; J0280; J1644; J1650; J2270; J2470; J2785; J7030; Q9967

== ENCOUNTER 2025-01-13 06:23 | Emergency (ER) | payer OTHER ==
[~2025-01-13] VITALS: Ht 160 cm; Wt 99.8 kg
[~2025-01-13 06:23] MED LIST changes: +CARV25 PO; +CLOP75 PO; +Isosorbide Mono30 MG PO; +NITR.4SL SL; +PANT20 PO; +TELM40 PO
[2025-01-13] MEDS ORDERED: Ketorolac Tromethamine 30mg Vial IV ONE (06:45)
[2025-01-13] MEDS ORDERED: Famotidine 10 MG/ML 2ML Vial IV ONE (06:45)
[2025-01-13 07:11] LABS: BASOPHILS ABSOLUTE AUTO 0.15 K/mm3 (0.00-0.23); BASOPHILS PERCENT AUTO 2 % (0-2); EOSINOPHILS ABSOLUTE AUTO 0.53 K/mm3 (0.00-0.68); EOSINOPHILS PERCENT AUTO 6 % (0-6); Hematocrit 39.4 % (33.0-51.0); Hemoglobin 13.3 g/dL (11.5-16.0); IMMATURE GRAN ABSOLUTE AUTO 0.04 K/mm3 (0.00-0.10); IMMATURE GRAN PERCENT AUTO 0 % (0-1); LYMPHOCYTES ABSOLUTE AUTO 2.26 K/mm3 (0.84-5.20); LYMPHOCYTES PERCENT AUTO 25 % (21-46); MONOCYTES ABSOLUTE AUTO 0.53 K/mm3 (0.16-1.47); MONOCYTES PERCENT AUTO 6 % (4-13); Mean Corpuscular HGB 32.4 pg (26.0-34.0); Mean Corpuscular HGB Conc 33.8 g/dL (31.5-36.5); Mean Corpuscular Volume 96 fL (80-100); Mean Platelet Volume 10.6 fL (9.1-12.4); NEUTROPHILS ABSOLUTE AUTO 5.56 K/mm3 (1.96-9.15); NEUTROPHILS PERCENT AUTO 61 % (41-73); Platelet Count 210 K/mm3 (150-400); RDW Coefficient Variation 12.4 % (11.7-14.2); RDW Standard Deviation 44.3 fL (35.1-46.3); White Blood Cell Count 9.07 K/mm3 (4.00-11.30)
[2025-01-13 07:49] LABS: Alanine Aminotransfer (ALT/SGP 37 U/L (12-78); Albumin, Blood 3.5 g/dL (3.4-5.0); Albumin/Globulin Ratio 0.9 (0.8-1.8); Alk Phos 64 U/L (50-136); Anion Gap 11 mmol/L (3-11); Aspartate Aminotrans (AST/SGOT 28 U/L (12-37); Bilirubin, Direct <0.1 mg/dL (0.0-0.3); Bilirubin, Indirect Unable to Calculate mg/dL (0.1-0.7); Bilirubin, Total 0.7 mg/dL (0.1-1.0); Blood Urea Nitrogen 19 mg/dL (8-24); Bun/Creatinine Ratio 25.6 (12.0-20.0); CO2, Blood 24 mmol/L (21-32); Calcium, Blood 8.6 mg/dL (8.5-10.1); Chloride, Blood 105 mmol/L (98-108); Creatinine, Blood 0.74 mg/dL (0.40-1.00); Globulin, Blood 3.8 g/dL (2.2-4.0); Glomerular Filtration Rate 88 (60-); Glucose, Blood 134 mg/dL (70-99); Potassium, Blood 3.8 mmol/L (3.5-5.5); Sodium, Blood 136 mmol/L (136-145); Total Protein, Blood 7.3 g/dL (6.4-8.2)
[2025-01-13] MEDS ORDERED: AmLODIPine Besylate 5 MG Tab PO ONE (08:20)
[2025-01-13] MEDS ORDERED: ClonazePAM 0.5 MG Tab PO ONE (08:20)
[2025-01-13] MEDS ORDERED: Losartan Potassium 50 MG Tab PO ONE (08:20)
[2025-01-13] MEDS ORDERED: Isosorbide Mononitrate 30 MG TABCR PO ONE (08:20)
[2025-01-13] MEDS ORDERED: Carvedilol 25 MG Tab PO ONE (08:20)
[2025-01-13 12:15] VITALS: BP 84/65
== END 2025-01-13 12:14 | disposition home or self-care (01) ==
LOC: ER 06:23
PROVIDERS: Student in an Organized Health Care Education/Training Program
DX: M79.604 Pain in right leg (principal); I10 Essential (primary) hypertension; R07.89 Other chest pain; E78.5 Hyperlipidemia, unspecified; K21.9 Gastro-esophageal reflux disease without esophagitis; M06.9 Rheumatoid arthritis, unspecified; Z88.2 Allergy status to sulfonamides; Z88.5 Allergy status to narcotic agent; Z91.040 Latex allergy status; Z79.899 Other long term (current) drug therapy; Z79.02 Long term (current) use of antithrombotics/antiplatelets; Z79.2 Long term (current) use of antibiotics
CPT/HCPCS: 71046; 80048; 80076; 83690; 84484; 85025; 85379; 93005; 93010; 93971; 96374; 96375; 99285-25; A9270; J1885

== ENCOUNTER → 2025-02-15 | Outpatient (CLI) | payer OTHER ==
[2025-02-15 20:35] LABS: CHOL/HDL RATIO 3.3; Cholesterol 174 mg/dL (50-200); HDL Cholesterol 53 mg/dL (>39); LDL/HDL RATIO 1.8; Low Density Lipoprotein Chol 98 mg/dL (0-110); Triglycerides 117 mg/dL (30-160); Very Low Density Lipoprot Chol 23 mg/dL (6-32)
== END ==
LOC: LAB SHORT 11:30 → LAB 11:30
PROVIDERS: Nurse Practitioner Family
DX: E78.5 Hyperlipidemia, unspecified (principal)
CPT/HCPCS: 80061